=== PATIENT | female | born 1960 | race Caucasian/White ===

== ENCOUNTER 2016-09-13 09:09 | Emergency (ER) | payer OTHER ==
[~2016-09-13] VITALS: Ht 167.6 cm; Wt 66.7 kg
--- NOTE | ~2016-09-13 | EKG ---
[address] [address] ELECTROCARDIOGRAM REPORT Name: HOWARDJAMIE Room [facility]: [id number] Admission: 09/13/16 Attend Phys: Discharge: 09/13/16 Date of : 56 Report #: [id number] THIS REPORT FOR: //name// [facility] ED Test Date: 2016-09-13 Test Time: 09:33:19 Pat Name: JAMIE HOWARD Department: Room: Gender: F County Director Welfare: nahun [place] : 1960 Requested By: Mireya Herrera Order Number: [id number] MD: Zaid Wang Measurements Intervals [place] Rate: 61 P: 50 FL: 179 QRS: 1 QRSD: 87 T: 47 QT: 423 QTc: 426 Interpretive Statements Sinus rhythm Compared to ECG 04/20/2015 18:27:18 No significant changes Electronically Signed On 09-17-2016 8:10:18 CDT by Zaid Wang [email or web address] <ELECTRONICALLY SIGNED> By: Zaid Wang MD 09/17/16 0810 0933 2 Zaid Wang MD /VICENTA
[~2016-09-13 09:09] MED LIST: ADULT LOW DOSE81 MG PO; AMITRIPTYLINE H25 M2 PO; BENTYL 20 MG TA20 M1 PO; DAYPRO600 MG PO; FLEET ENEMA118 ML RC; HCTZ PO; IBUPROFEN 800800 M1; MIRALAX255 GM PO; NABUMETONE 750750 M1; NORCO 5-325 TA1 EACH PO; OMEPRAZOLE40 MG PO; PHENERGAN 25 MG25 M1 PO; PRAVACHOL PO; RESTORIL15 MG PO; TRIAMTERENE-HC1 EAC1; VITAMIN D-32000 UNIT PO; VITAMIN D250000 UNIT PO; ZETIA10 MG PO; ZOFRAN4 MG
[2016-09-13] MEDS ORDERED: AUGMENTIN 875875 MG PO (09:23)
[2016-09-13] MEDS ORDERED: NORCO 5-325 TA1 EACH PO (09:24)
[2016-09-13] MEDS ORDERED: NORVASC2.5 MG PO (09:24)
[2016-09-13 09:45] LABS: ABSOLUTE NEUTROPHILS 1.7 thou/uL (1.4-8.2); BASOPHILS 0.7 % (0.0-2.0); EOSINOPHILS 1.8 % (0.0-3.0); HEMOGLOBIN 14.2 gm/dL (12.0-15.0); LYMPHOCYTES 53.1 % (24.0-44.0); MCH 28.8 pg (26.0-34.0); MCHC 33.9 g/dL (28.0-37.0); MONOCYTES 6.8 % (1.0-8.0); PLATELET COUNT 218 thou/uL (150-400); POLYS 37.6 % (36.0-66.0); RBC 4.93 mil/uL (4.20-5.00); RDW 13.4 % (10.5-14.5); WBC 4.6 thou/uL (4.0-11.0)
[2016-09-13 09:50] LABS: MANUAL DIFF NO
[2016-09-13 09:56] LABS: ANION GAP 5 mmol/L (7-16); BUN 8 mg/dL (7-18); CALCIUM 9.6 mg/dL (8.5-10.1); CHLORIDE 109 mmol/L (98-107); CO2 28 mmol/L (21-32); GLUCOSE 96 mg/dL (74-106); POTASSIUM 3.4 mmol/L (3.5-5.1); SODIUM 142 mmol/L (136-145)
[2016-09-13 10:03] LABS: ALBUMIN 3.8 g/dL (3.4-5.0); ALKALINE PHOSPHATASE 72 U/L (46-116); DIRECT BILIRUBIN < 0.1 mg/dL (<0.1-0.3); SGOT 17 U/L (15-37); SGPT 19 U/L (30-65); TOTAL BILIRUBIN 0.3 mg/dL (<0.1-1.0); TOTAL PROTEIN 7.2 g/dL (6.4-8.2); TROPONIN-I < 0.04 ng/mL (<0.04-0.07)
[2016-09-13] MEDS ORDERED: NAPROSYN500 MG PO (13:37)
[2016-09-13] MEDS ORDERED: ZOFRAN ODT4 MG PO (13:41)
[2016-09-13 13:54] VITALS: BP 140/74
== END 2016-09-13 13:55 | disposition home or self-care (01) ==
LOC: ER 09:09
PROVIDERS: Emergency Medicine
DX: S29.012A Strain of muscle and tendon of back wall of thorax, initial encounter (principal); I10 Essential (primary) hypertension; Z90.89 Acquired absence of other organs; Z88.6 Allergy status to analgesic agent; Z87.891 Personal history of nicotine dependence; X58.XXXA Exposure to other specified factors, initial encounter; Y93.89 Activity, other specified; Y92.89 Other specified places as the place of occurrence of the external cause; Y99.9 Unspecified external cause status